=== PATIENT | female | born 1995 | race American Indian/Alaskan Native ===

== ENCOUNTER 2016-10-14 15:37 | Emergency (ER) | payer OTHER | END 2016-10-14 15:38 | disposition left against medical advice (07) | LOC: ED 15:37 | DX: L02.32 Furuncle of buttock (principal); Z53.21 Procedure and treatment not carried out due to patient leaving prior to being seen by health care provider ==

== ENCOUNTER 2020-08-26 11:35 | Emergency (ER) | payer MEDICAID ==
--- NOTE | 2020-08-26 12:08 | Event Note ---
ED Screening Note ED Screening Note: 3 w post with rle pain also noted to have inc bp on arrival This initial assessment/diagnostic orders/clinical plan/treatment(s) is/are subject to change based on patients health status, clinical progression and re- assessment by fellow clinical providers in the ED. Further treatment and workup at subsequent clinical providers discretion. Patient/guardian urged not to elope from the ED as their condition may be serious if not clinically assessed and managed. Initial orders include: us recheck bp/ eclampsia
[2020-08-26 12:32] LABS: Bacteria,Urine 1+ /HPF (Negative); Bilirubin,Urine NEG (Negative); Blood,Urine LG (Negative); Color,Urine Yellow (Yellow); Mucus,Urine FEW /HPF; Urobilinogen,Urine < 2.0 mg/dL (<2.0)
--- NOTE | 2020-08-26 12:41 | Emergency Department Report ---
ED General Adult HPI - General Chief complaint: Extremity Injury, Lower Stated complaint: RIGHT LEG PAIN POST OP Time Seen by Provider: 08/26/20 12:07 Source: patient Mode of arrival: Ambulatory Limitations: No Limitations - History of Present Illness Initial comments: Patient is a 25-year-old, 3-week female presents to emergency department for evaluation of pain to the back of her right knee for the past 1 to 2 weeks. Pain is dull, constant, nonradiating, unchanged with ambulation. Patient denies history of blood clots or blood clotting disorder, denies shortness of breath or chest pain. - Related Data Allergies Allergy/AdvReac Type Severity Reaction Status Date / Time No Known Allergies Allergy Unverified 07/31/20 09:39 ED Review of Systems ROS: Stated complaint: RIGHT LEG PAIN POST OP Other details as noted in HPI Comment: All other systems reviewed and negative ED Past Medical Hx - Past Medical History Previous Medical History?: No Hx Hypertension: No Hx Heart Attack/AMI: No Hx Diabetes: No Hx Deep Vein Thrombosis: No Hx Liver Disease: No Hx Renal Disease: No Hx Sickle Cell Disease: No Hx Seizures: No Hx Asthma: No Hx COPD: No Hx HIV: No - Surgical History Hx Pacemaker: No Hx Internal Defibrillator: No - Social History Smoking Status: Never Smoker Substance Use Type: None ED Physical Exam - General Limitations: No Limitations General appearance: alert, in no apparent distress - Head Head exam: Present: atraumatic, normocephalic - Eye Eye exam: Present: normal appearance - ENT ENT exam: Present: mucous membranes moist - Neck Neck exam: Present: normal inspection - Respiratory Respiratory exam: Present: normal lung sounds bilaterally. Absent: respiratory distress - Cardiovascular Cardiovascular Exam: Present: regular rate, normal rhythm - GI/Abdominal GI/Abdominal exam: Present: soft, normal bowel sounds - Extremities Exam Extremities exam: Present: normal inspection - Back Exam Back exam: Present: normal inspection - Neurological Exam Neurological exam: Present: alert, oriented X3 - Psychiatric Psychiatric exam: Present: normal affect, normal mood - Skin Skin exam: Present: warm, dry, intact, normal color. Absent: rash ED Course Vital Signs 08/26/20 12:00 Temperature 98 F Pulse Rate 91 H Respiratory 18 Rate Blood Pressure 167/90 O2 Sat by Pulse 99 Oximetry - Reevaluation(s) Reevaluation #1: 08/26/20 13:56 Work-up reassuring, advised patient discontinue ambulation if painful (patient notes pain is unchanged with ambulation) and to follow-up with primary care doctor for referral to either physical therapy and/or orthopedics as indicated. ED Medical Decision Making - Lab Data Result diagrams: 08/26/20 13:00 08/26/20 13:00 Labs 08/26/20 08/26/20 08/26/20 12:20 13:00 13:00 WBC 6.9 RBC 4.27 Hgb 12.2 Hct 36.9 MCV 86 MCH 29 MCHC 33 RDW 13.3 Plt Count 279 PT 12.9 INR 0.98 Sodium Potassium Chloride Carbon Dioxide Anion Gap BUN Glucose Calcium Magnesium Total Bilirubin AST ALT Alkaline Phosphatase Total Protein Albumin Albumin/Globulin Ratio Urine Color Yellow Urine Turbidity Hazy Urine pH 6.0 Ur Specific [place] 1.021 Urine Protein 30 mg/dl Urine Glucose (UA) Neg Urine Ketones Neg Urine Blood Lg Urine Nitrite Neg Urine Bilirubin Neg Urine Urobilinogen < 2.0 Ur Leukocyte Esterase Sm Urine WBC (Auto) 14.0 H Urine RBC (Auto) 3.0 U Epithel Cells (Auto) 25.0 H Urine Bacteria (Auto) 1+ Urine Mucus Few 08/26/20 08/26/20 13:00 13:00 WBC RBC Hgb Hct MCV MCH MCHC RDW Plt Count PT INR Sodium 139 Potassium 3.7 Chloride 103.5 Carbon Dioxide 29 Anion Gap 10 BUN 12 Glucose 98 Calcium 9.6 Magnesium 1.80 Total Bilirubin 0.20 AST 18 ALT 24 Alkaline Phosphatase 75 Total Protein 7.6 Albumin 4.5 Albumin/Globulin Ratio 1.5 Urine Color Urine Turbidity Urine pH Ur Specific [place] Urine Protein Urine Glucose (UA) Urine Ketones Urine Blood Urine Nitrite Urine Bilirubin Urine Urobilinogen Ur Leukocyte Esterase Urine WBC (Auto) Urine RBC (Auto) U Epithel Cells (Auto) Urine Bacteria (Auto) Urine Mucus Vital Signs 08/26/20 12:00 Temperature 98 F Pulse Rate 91 H Respiratory 18 Rate Blood Pressure 167/90 O2 Sat by Pulse 99 Oximetry Critical care attestation.: If time is entered above; I have spent that time in minutes in the direct care of this critically ill patient, excluding procedure time. ED Disposition Clinical Impression: Right knee pain Disposition: DC- TO HOME OR SELFCARE Is pt being admited?: No Condition: Stable Instructions: Acute Knee Pain, Adult, [id number] Referrals: PRIMARY CARE,MD [Primary Care Provider] - 3-5 Days
--- NOTE | 2020-08-26 13:01 | Vascular Lab Report ---
DUPLEX DOPPLER LOWER EXTREMITY VEINS, RIGHT INDICATION / CLINICAL INFORMATION: PAIN R CALF. TECHNIQUE: Duplex doppler imaging was performed through the veins of the right lower extremity using venous comp ression and other maneuvers. COMPARISON: None available. FINDINGS: RIGHT COMMON FEMORAL VEIN: Negative. RIGHT FEMORAL VEIN: Negative. RIGHT POPLITEAL VEIN: Negative. RIGHT CALF VEINS: Negative. ADDITIONAL FINDINGS: None. IMPRESSION: 1. No sonographic evidence for DVT in the right lower extremity. Signer Name: Jeb Baron MD Signed: 08/26/2020 12:56 PM Workstation Name: [id number]
[2020-08-26 13:08] LABS: Hematocrit 36.9 % (30.3-42.9); Hemoglobin 12.2 gm/dl (10.1-14.3); Mean Corpuscular HGB Conc 33 % (30-34); Mean Corpuscular Volume 86 fl (79-97); Platelet Count 279 K/mm3 (140-440); Red Blood Count 4.27 M/mm3 (3.65-5.03); Red Cell Distribution Width 13.3 % (13.2-15.2)
[2020-08-26 13:20] LABS: INR 0.98 (0.87-1.13)
[2020-08-26 13:32] LABS: Alanine Aminotransferase 24 units/L (7-56); Albumin 4.5 g/dL (3.9-5); Blood Urea Nitrogen 12 mg/dL (7-17); Calcium 9.6 mg/dL (8.4-10.2); Hemolysis Index 1
[2020-08-26 14:06] LABS: BUN/Creatinine Ratio 24
[2020-08-26 14:26] VITALS: BP 121/89
== END 2020-08-26 14:26 | disposition home or self-care (01) ==
LOC: ED 11:35
DX: M25.561 Pain in right knee (principal)
CPT/HCPCS: 36415; 80053; 81001; 83735; 85027; 85610; 87086